=== PATIENT | female | born 1955 | race Two or more races ===

== ENCOUNTER → 2020-05-17 | Outpatient (CLI) | payer OTHER | END | disposition home or self-care (01) | LOC: LABWHC1 09:18 | PROVIDERS: ATTEND Family Medicine | DX: R50.9 Fever, unspecified (principal) | CPT/HCPCS: 87502; U0003; C9803 ==

== ENCOUNTER → 2024-08-28 | Outpatient (CLI) | payer MEDICARE ==
--- NOTE | 2024-08-28 18:39 | CT ---
EXAMINATION TYPE: CT chest w con DATE OF EXAM: 08/28/2024 COMPARISON: NONE CLINICAL INDICATION: Female, 69 years old with history of R59.0 LOCALIZED ENLARGED LYMPH NODES, Bad c ough that held on long after being sick. TECHNIQUE: CT scan of the thorax is performed following with IV Contrast, patient injected with 100m l mL of Isovue 300. CT DLP: 361.3 mGycm. Automated Exposure Control for Dose Reduction was Utilized. FINDINGS: LUNGS: Multiple small bilateral nodules are seen bilaterally most prominent in the mid lungs. For ref erence of a 9 x 7 mm central right lung nodule axial image 36. There is sparing of the upper lungs in the lung bases. Mild bibasilar linear scarring and atelectasis. No pleural effusion or pneumothorax seen bilaterally. HEART: Cardiomegaly is demonstrated. Moderate coronary artery calcifications present. MEDIASTINUM: There are enlarged bilateral hilar and mediastinal lymph nodes some which are calcified. For Reference is a 3.3 x 2.4 cm subcarinal lymph node axial image 33. No pericardial effusion is s een. There is 1.2 cm low-density right thyroid nodule coronal image 38. OTHER: This is a 2.3 cm simple appearing thin-walled cyst anteriorly in the left kidney image 63 that does not require follow-up.. IMPRESSION: 1. Multiple small bilateral midlung nodules with prominent thoracic lymph nodes majority which are pa rtially calcified. Consider atypical infection versus granulomatous disease versus possible metastati c malignancy. Advise pulmonology referral. Consider bronchoscopy and/or PET CT follow-up to further e valuate. 2. Greater than 1.0 cm right thyroid nodule. Advise thyroid ultrasound follow-up to further evaluate and characterize if this is not known finding. [facility], , 08/28/2024 6:37 PM
== END | disposition home or self-care (01) ==
LOC: RADCTMAIN 14:35
PROVIDERS: ATTEND Family Medicine
DX: R91.8 Other nonspecific abnormal finding of lung field (principal); E04.1 Nontoxic single thyroid nodule; R59.0 Localized enlarged lymph nodes
CPT/HCPCS: 71260; Q9967

== ENCOUNTER → 2024-09-19 | Outpatient (CLI) | payer MEDICARE ==
[2024-09-19 14:46] LABS: Basophils # (A) 0.05 X 10*3/uL (0.00-0.10); Basophils % (A) 0.9 %; Eosinophils # (A) 0.23 X 10*3/uL (0.04-0.35); Eosinophils % (A) 3.9 %; HCT 43.8 % (37.2-46.3); HGB 14.3 g/dL (12.0-15.0); Lymphocytes # (A) 0.93 X 10*3/uL (0.90-5.00); MCH 30.5 pg (27.0-32.0); MCHC 32.6 g/dL (32.0-37.0); MCV 93.4 FL (80.0-97.0); Mean Platelet Volume 10.7 FL (9.5-12.2); Monocytes # (A) 0.71 X 10*3/uL (0.20-1.00); Monocytes % (A) 12.2 %; NRBC Per 100 WBC 0 X 10*3/uL (0.00-0.01); Neutrophils # (A) 3.88 X 10*3/uL (1.80-7.70); Neutrophils % (A) 66.5 %; Platelet Count 241 X 10*3/uL (140-440); RBC 4.69 X 10*6/uL (4.10-5.20); RDW 13.6 % (11.5-14.5); WBC 5.83 X 10*3/uL (4.50-10.00)
[2024-09-19 15:13] LABS: ALT 29 U/L (8-44); AST 33 U/L (13-35); Albumin 4.2 g/dL (3.8-4.9); Albumin/Globulin Ratio 1.62 Ratio (1.60-3.17); Alkaline Phosphatase 96 U/L (41-126); BUN/Creat Ratio 25.78 Ratio (12.00-20.00); Blood Urea Nitrogen 23.2 mg/dL (9.0-27.0); Calcium 10.1 mg/dL (8.7-10.3); Carbon Dioxide 21.7 mmol/L (21.6-31.8); Chloride 104 mmol/L (96-109); Globulin 2.6 g/dL (1.6-3.3); Glucose 97 mg/dL (70-110); Potassium 4.5 mmol/L (3.5-5.5); Sodium 143 mmol/L (135-145); Total Bilirubin 0.4 mg/dL (0.3-1.2); Total Protein 6.8 g/dL (6.2-8.2)
[2024-09-19 15:57] LABS: Erythrocyte Sedimentation Rate 13 mm/Hr (0-30)
== END | disposition home or self-care (01) ==
LOC: LABWHC1 09:24
PROVIDERS: ATTEND Internal Medicine
DX: R91.8 Other nonspecific abnormal finding of lung field (principal)
CPT/HCPCS: 36415; 80053; 82164; 85025; 85652; 87449

== ENCOUNTER → 2024-10-06 | Outpatient (CLI) | payer MEDICARE ==
--- NOTE | 2024-10-08 17:20 | PE ---
EXAMINATION TYPE: PET CT fusion skull to thigh DATE OF EXAM: 10/06/2024 CLINICAL INDICATION:Female, 69 years old with history of R91.8 lung nodules; TECHNIQUE: Following the intravenous administration of 11.31 mCi of F-18 FDG, whole body images are performed from the skull base to the midthigh. Images are reviewed on the computer in the coronal, axial, and sagittal planes. Reconstructed rotating images are created on independent workstation and reviewed on the computer. A non-contrast CT is performed in conjunction with the PET scan. Glucose level 95 mg/dL CT DLP: 1097.1 mGycm, Automated exposure control for dose reduction was used. COMPARISON: CT 08/28/2024, PET/CT None, MRI: None FINDINGS: Mediastinal SUV mean is 2.4. Hepatic parenchyma SUV mean is 3.5. SKULL BASE AND NECK: No suspicious radiotracer activity. CHEST, MEDIASTINUM, AND HILAR REGION: Multiple enlarged FDG avid bilateral hilar and mediastinal lymph nodes with some demonstrating calcif ications redemonstrated. Example includes a subcarinal lymph node measuring up to 2.6 cm with a maximum SUV of 8.9. Right hilar lymph node measuring up to 1.4 cm with a maximum SUV of 5.4. Left hilar lymph node measuring up to 2.7 cm with a maximum SUV of 5.9. Right paratracheal lymph node measuring up to 2.1 cm with a maximum SUV of 6.6. Innumerable small subcentimeter pulmonary nodules throughout the lungs. There is again sparing of the upper lungs and bases bilaterally. No FDG activity above background levels identified. Example includes a left upper lobe 0.6 cm pulmonary nodule (series 4, image 76) with a maximum SUV of 1.6. Lingular 1.2 cm pulmonary nodule with coarse calcification (series 4, image 108). Demonstrates a maxi mum SUV of 1.1. Right middle lobe 1.3 cm pulmonary nodule (series 4, image 109), demonstrates a maximum SUV of 1 9. ABDOMEN AND PELVIS: Enlarged periportal lymph nodes with largest measuring up to 2.2 cm with a maximum SUV of 9.2. Post hysterectomy changes with left adnexal mass measuring up to 4.1 cm. It demonstrates coarse calci fications. Demonstrates a max SUV of 3.5 which is at background levels. Appears to be separate from t he left ovary. MUSCULOSKELETAL STRUCTURES: No suspicious radiotracer activity. OTHER CT: Bilateral palatine tonsilloliths. Right thyroid lobe hypodense subcentimeter nodule. Mild c ardiomegaly. Mild coronary arterial calcification. Mild atherosclerotic calcification of the aorta an d its branches. Sigmoid diverticulosis without evidence for acute diverticulitis. IMPRESSION: Multiple mildly FDG avid bilateral hilar and mediastinal lymph nodes with coarse calcifications. Enla rged FDG avid periportal lymph nodes. Innumerable small pulmonary nodules which do not demonstrate FD G activity above background however majority these nodules are below the sensitivity of PET/CT. Addit ional left adnexal mass with coarse calcifications which appears separate from the left ovary. Demons trates FDG activity at background levels. May represent an enlarged calcified lymph node versus other etiologies. Overall appearance of the lymph nodes with calcifications and pulmonary nodules raises possibility of sarcoidosis versus other infectious/inflammatory/granulomatous etiologies with metastasis is not exc luded. Further workup is recommended with correlation with EMERY levels. Consider tissue sampling as cl inically indicated. Follow-up CT chest in 3 months is recommended to assess for stability of the pulm onary nodules. Additionally recommend further workup with pelvic ultrasound. [facility], , 10/08/2024 5:18 PM
== END | disposition home or self-care (01) ==
LOC: RADPETMAIN 08:26
PROVIDERS: ATTEND Internal Medicine
DX: R91.8 Other nonspecific abnormal finding of lung field (principal); R59.9 Enlarged lymph nodes, unspecified
CPT/HCPCS: 78815; A9552